=== PATIENT | female | born 1995 | race African-American/Black ===

== ENCOUNTER 2021-09-02 11:07 | Inpatient (IN) | payer BC ==
[2021-09-02] MEDS ORDERED: Labetalol HCl 100 MG/20 ML VIAL SLOW IVP PRN ×2 (11:51)
[2021-09-02] MEDS ORDERED: hydrALAZINE 20 MG/ML VIAL SLOW IVP PRN ×3 (11:51)
[2021-09-02] MEDS ORDERED: Labetalol HCl 100 MG/20 ML VIAL ONE (12:01)
[2021-09-02] MEDS ORDERED: hydrALAZINE 20 MG/ML VIAL ONE (12:01)
[2021-09-02 12:49] LABS: #Monocytes 0.8 10x3/uL (0.0-1.1); #Neutrophils 3.8 10x3/uL (1.5-8.4); %Basophils 0.3 % (0.0-2.0); %Eosinophils 0.6 % (0.0-6.0); %Lymphocytes 31.2 % (18.0-47.0); %Monocytes 11.2 % (0.0-10.0); %Neutrophils 56.1 % (40.0-75.0); Hemoglobin 13.5 g/dL (12.0-15.5); Mean Corpuscular HGB CONC 33.6 g/dL (32.0-36.0); Mean Corpuscular Hemoglobin 27.2 pg (27.0-33.0); Mean Corpuscular Volume 80.9 fl (81.6-98.3); Mean Platelet Volume 10.9 fl (7.4-10.4); Platelet Count 202 10x3/uL (150-450); RBC Distribution Width 15.7 % (11.5-14.5); Red Blood Cell (RBC) Count 4.97 10x6/uL (3.90-5.03); White Blood Cell (WBC) Count 6.8 10x3/uL (3.5-10.5)
[2021-09-02] MEDS ORDERED: Lorazepam 2 MG/ML VIAL SLOW IVP PRN (12:59)
[2021-09-02] MEDS ORDERED: Calcium Gluc 4.6 MEQ/10 ML (100 MG/ML) SLOW IVP PRN (12:59)
[2021-09-02] MEDS ORDERED: Ondansetron PF 4 MG/2 ML Vial IVP PRN (12:59)
[2021-09-02] MEDS ORDERED: Promethazine HCl 25 MG/ML VIAL IM PRN (12:59)
[2021-09-02 13:02] LABS: ALT (SGPT) 18 U/L (8-55); AST (SGOT) 23 U/L (5-34); Albumin 3.5 g/dL (3.5-5.0); Alkaline Phosphatase 180 U/L (40-110); Anion Gap 14 mmol/L (10-20); BUN (Urea Nitrogen) 5 mg/dL (7.0-18.7); Bilirubin, Total 0.4 mg/dL (0.2-1.2); Calc. Creatinine Clearance 0 mL/min (70-130); Calcium 9.5 mg/dL (7.8-10.44); Carbon Dioxide 22 mmol/L (22-29); Chloride 107 mmol/L (98-107); Globulin 2.9 g/dL (2.4-3.5); Potassium 3.9 mmol/L (3.5-5.1); Protein, Total 6.4 g/dL (6.0-8.3); Sodium 139 mmol/L (136-145)
[2021-09-02] MEDS ORDERED: Magnesium Sulfate 20 gm/500 ml 20 GM/500 ML BAG ONE (13:08)
[2021-09-02 13:10] LABS: Glucose 49 mg/dL (70-105)
[2021-09-02] MEDS: Magnesium Sulfate 20 gm/500 ml 20 GM/500 ML BAG IVPB SCH ×2 (13:19→21:53)
[2021-09-02 13:22] VITALS: BMI 37.8
[2021-09-02 14:36] LABS: Creatinine, Urine 52.84 mg/dL (47-110)
[2021-09-02] MEDS: Betamet Acet/Betamet Na Ph 30 MG/5 ML VIAL IM SCH (14:54)
[2021-09-02] MEDS ORDERED: Labetalol HCl 100 MG TAB PO SCH (15:00)
[2021-09-02 16:01] LABS: SARS-CoV-2 NAA Rapid Test Not Detected (NotDetected)
[2021-09-03 00:10] LABS: Magnesium 4.3 mg/dL (1.6-2.6)
[2021-09-03] MEDS: Magnesium Sulfate 20 gm/500 ml 20 GM/500 ML BAG IVPB SCH ×2 (08:03→20:24)
[2021-09-03] MEDS: Labetalol HCl 100 MG TAB PO SCH ×2 (08:59→22:27)
[2021-09-03] MEDS: Betamet Acet/Betamet Na Ph 30 MG/5 ML VIAL IM SCH (15:00)
[2021-09-04] MEDS: Labetalol HCl 100 MG TAB PO SCH ×2 (08:24→20:44)
[2021-09-04] MEDS: Calcium Carbonate 500 MG ChewTAB PO PRN (12:45)
[2021-09-05 08:28] LABS: Hemoglobin 12.8 g/dL (12.0-15.5); Mean Corpuscular HGB CONC 35.3 g/dL (32.0-36.0); Mean Corpuscular Hemoglobin 27.9 pg (27.0-33.0); Mean Corpuscular Volume 79.3 fl (81.6-98.3); Platelet Count 193 10x3/uL (150-450); RBC Distribution Width 16.4 % (11.5-14.5); Red Blood Cell (RBC) Count 4.58 10x6/uL (3.90-5.03); White Blood Cell (WBC) Count 11.1 10x3/uL (3.5-10.5)
[2021-09-05 08:53] LABS: ALT (SGPT) 16 U/L (8-55); AST (SGOT) 18 U/L (5-34); Albumin 3.3 g/dL (3.5-5.0); Alkaline Phosphatase 146 U/L (40-110); Anion Gap 15 mmol/L (10-20); BUN (Urea Nitrogen) 10 mg/dL (7.0-18.7); Bilirubin, Total 0.4 mg/dL (0.2-1.2); Calc. Creatinine Clearance 187 mL/min (70-130); Calcium 9.1 mg/dL (7.8-10.44); Carbon Dioxide 21 mmol/L (22-29); Chloride 107 mmol/L (98-107); Globulin 2.7 g/dL (2.4-3.5); Glucose 71 mg/dL (70-105); Potassium 4.3 mmol/L (3.5-5.1); Sodium 139 mmol/L (136-145)
[2021-09-05] MEDS: Labetalol HCl 100 MG TAB PO SCH ×2 (10:02→20:31)
[2021-09-05] MEDS: Calcium Carbonate 500 MG ChewTAB PO PRN ×2 (10:03→20:32)
[2021-09-06] MEDS: Labetalol HCl 100 MG TAB PO SCH ×2 (09:27→20:28)
[2021-09-06] MEDS ORDERED: hydrALAZINE 20 MG/ML VIAL SLOW IVP PRN (14:02)
[2021-09-06] MEDS: Calcium Carbonate 500 MG ChewTAB PO PRN (20:28)
[2021-09-07] MEDS: hydrALAZINE 20 MG/ML VIAL SLOW IVP PRN ×2 (07:59→17:22)
[2021-09-07] MEDS: Labetalol HCl 100 MG TAB PO SCH (08:02)
[2021-09-07] MEDS ORDERED: Acetaminophen 500 MG TAB PO PRN (12:50)
[2021-09-07 17:58] LABS: Bilirubin Neg (Negative); Blood, Urine 150 (Negative); Clarity Clear (Clear); Glucose, Urine (Dipstick) Normal (Negative); Ketone, Urine Negative (Negative); Leukocyte 100 (Negative); Nitrite Positive (Negative); Protein, Urine (Dipstick) 30 mg/dl (Neg-Trace); Specific Gravity, Urine 1.015 (1.002-1.036); Urobilinogen Normal mg/dL (Less than 2)
[2021-09-07 18:33] LABS: Bacteria/HPF 3+ HPF (None Seen); Squamous Epithelial 0-3 HPF (0-3)
[2021-09-07 19:01] LABS: Hemoglobin 12.7 g/dL (12.0-15.5); Mean Corpuscular HGB CONC 34.3 g/dL (32.0-36.0); Mean Corpuscular Hemoglobin 27.9 pg (27.0-33.0); Mean Corpuscular Volume 81.1 fl (81.6-98.3); Mean Platelet Volume 11.1 fl (7.4-10.4); Platelet Count 178 10x3/uL (150-450); RBC Distribution Width 15.9 % (11.5-14.5); Red Blood Cell (RBC) Count 4.56 10x6/uL (3.90-5.03); White Blood Cell (WBC) Count 8.3 10x3/uL (3.5-10.5)
[2021-09-07] MEDS: Nitrofurantoin Monohyd/M-Cryst 100 MG CAP PO SCH (21:01)
[2021-09-07] MEDS: Labetalol HCl 200 MG TAB PO SCH (21:01)
[2021-09-07] MEDS: Calcium Carbonate 500 MG ChewTAB PO PRN (22:19)
[2021-09-08] MEDS: hydrALAZINE 20 MG/ML VIAL SLOW IVP PRN (04:57)
[2021-09-08 05:20] LABS: ALT (SGPT) 16 U/L (8-55); AST (SGOT) 18 U/L (5-34); Albumin 2.8 g/dL (3.5-5.0); Alkaline Phosphatase 149 U/L (40-110); Anion Gap 14 mmol/L (10-20); BUN (Urea Nitrogen) 8 mg/dL (7.0-18.7); Bilirubin, Total 0.4 mg/dL (0.2-1.2); Calc. Creatinine Clearance 196 mL/min (70-130); Calcium 8.6 mg/dL (7.8-10.44); Carbon Dioxide 21 mmol/L (22-29); Chloride 108 mmol/L (98-107); Globulin 2.5 g/dL (2.4-3.5); Glucose 79 mg/dL (70-105); Potassium 4.1 mmol/L (3.5-5.1); Protein, Total 5.3 g/dL (6.0-8.3); Sodium 139 mmol/L (136-145)
[2021-09-08] MEDS ORDERED: Bicitra 30 ML UDCUP PO PRN (05:55)
[2021-09-08] MEDS ORDERED: Ondansetron PF 4 MG/2 ML Vial IVP PRN ×3 (05:55→22:34)
[2021-09-08] MEDS ORDERED: hydrALAZINE 20 MG/ML VIAL SLOW IVP PRN (05:55)
[2021-09-08] MEDS ORDERED: Butorphanol Tartrate 1 MG/ML VIAL SLOW IVP PRN (05:55)
[2021-09-08] MEDS ORDERED: Promethazine HCl 25 MG/ML VIAL IM PRN ×3 (05:55→22:34)
[2021-09-08] MEDS ORDERED: Famotidine/PF 20 mg/2ml Vial SLOW IVP PRN (05:55)
[2021-09-08] MEDS ORDERED: ceFAZolin 2 GM/Dextrose 50 ML 2 GM in Premix Bag 1 BAG IVPB SCH (06:00)
[2021-09-08] MEDS ORDERED: Lorazepam 2 MG/ML VIAL SLOW IVP PRN (06:04)
[2021-09-08] MEDS ORDERED: Calcium Gluc 4.6 MEQ/10 ML (100 MG/ML) SLOW IVP PRN (06:04)
[2021-09-08 08:14] LABS: Mean Corpuscular Hemoglobin 27.6 pg (27.0-33.0); Mean Corpuscular Volume 78.8 fl (81.6-98.3); Mean Platelet Volume 11.6 fl (7.4-10.4); Platelet Count 175 10x3/uL (150-450); RBC Distribution Width 16.1 % (11.5-14.5); Red Blood Cell (RBC) Count 4.71 10x6/uL (3.90-5.03); White Blood Cell (WBC) Count 8.6 10x3/uL (3.5-10.5)
[2021-09-08 08:25] LABS: ALT (SGPT) 20 U/L (8-55); AST (SGOT) 25 U/L (5-34); Albumin 3.1 g/dL (3.5-5.0); Alkaline Phosphatase 163 U/L (40-110); Anion Gap 15 mmol/L (10-20); BUN (Urea Nitrogen) 7 mg/dL (7.0-18.7); Bilirubin, Total 0.5 mg/dL (0.2-1.2); Calc. Creatinine Clearance 199 mL/min (70-130); Calcium 8.9 mg/dL (7.8-10.44); Carbon Dioxide 20 mmol/L (22-29); Chloride 107 mmol/L (98-107); Globulin 2.7 g/dL (2.4-3.5); Glucose 70 mg/dL (70-105); Potassium 4.2 mmol/L (3.5-5.1); Protein, Total 5.8 g/dL (6.0-8.3); Sodium 138 mmol/L (136-145)
[2021-09-08] MEDS: Labetalol HCl 200 MG TAB PO SCH ×2 (09:00→21:42)
[2021-09-08] MEDS: Nitrofurantoin Monohyd/M-Cryst 100 MG CAP PO SCH ×2 (09:00→21:42)
[2021-09-08 09:23] LABS: Hep B Surf Ag Non-Reactive S/CO (NonReactive)
[2021-09-08 09:24] LABS: Syphilis Antibody Nonreactive (Nonreactive); Syphilis Antibody Index 0.03 S/CO (<1.00 Non-Reactive)
[2021-09-08 09:56] LABS: HBSAg Index 0.17 S/CO (0-0.99)
[2021-09-08] MEDS ORDERED: ceFAZolin 2 GM/Dextrose 50 ML IVPB ONE (15:12)
[2021-09-08] MEDS ORDERED: PHENYLEPHRINE-NS 100 MCG/ML 10 ML SYRINGE ONE (15:16)
[2021-09-08] MEDS ORDERED: Oxytocin 10 UNITS/ML VIAL ONE (15:16)
[2021-09-08] MEDS ORDERED: Morphine PF 10 MG/10 ML VIAL ONE (15:16)
[2021-09-08] MEDS ORDERED: Fentanyl 100 MCG/2 ML VIAL ONE (16:15)
[2021-09-08] MEDS ORDERED: Fentanyl 100 MCG/2 ML VIAL SLOW IVP PRN (16:37)
[2021-09-08] MEDS ORDERED: Ondansetron HCl/PF 4 MG/2 ML Vial IVP PRN (16:37)
[2021-09-08] MEDS ORDERED: diphenhydrAMINE 50 MG/ML VIAL IVP PRN (16:37)
[2021-09-08] MEDS ORDERED: Promethazine HCl 25 MG SUPP PR PRN (16:37)
[2021-09-08] MEDS ORDERED: Naloxone HCl 0.4 mg/ml Vial IV PRN (16:37)
[2021-09-08] MEDS ORDERED: Moisturizing Cream (Eucerin) 113 GM JAR TOP PRN (16:37)
[2021-09-08] MEDS ORDERED: Naloxone HCl 0.4 mg/ml Vial IVP PRN ×2 (16:37)
[2021-09-08] MEDS ORDERED: Meperidine HCl/PF 25 MG/ML VIAL SLOW IVP PRN (16:37)
[2021-09-08 16:43] LABS: RapidComm Collect By NURSE
[2021-09-08 16:44] LABS: RapidComm Collect By NURSE; pH (Cord, venous) 7.336 (7.250-7.350)
[2021-09-08] MEDS ORDERED: Communication Order-Pharmacy FS SCH (16:45)
[2021-09-08] MEDS ORDERED: Ketorolac Tromethamine 30 MG/ML VIAL IVP SCH (16:45)
[2021-09-08] MEDS ORDERED: Boostrix 0.5 ML (Tdap) VIAL IM ONE (22:34)
[2021-09-08] MEDS ORDERED: Misoprostol 200 MCG TAB PR PRN (22:34)
[2021-09-08] MEDS ORDERED: Simethicone Chewable 80 MG TAB PO PRN (22:34)
[2021-09-08] MEDS ORDERED: NS w/ Oxytocin 30 units 500 ML IV SCH (23:00)
[2021-09-08] MEDS ORDERED: Docusate 100 MG CAP PO SCH (23:00)
[2021-09-08] MEDS ORDERED: Ferrous Sulfate 325 MG TAB PO SCH (23:00)
[2021-09-09 04:37] LABS: Hemoglobin 13.1 g/dL (12.0-15.5); Mean Corpuscular HGB CONC 35.2 g/dL (32.0-36.0); Mean Corpuscular Hemoglobin 27.7 pg (27.0-33.0); Mean Corpuscular Volume 78.6 fl (81.6-98.3); Mean Platelet Volume 11.6 fl (7.4-10.4); Platelet Count 158 10x3/uL (150-450); RBC Distribution Width 15.9 % (11.5-14.5); Red Blood Cell (RBC) Count 4.73 10x6/uL (3.90-5.03); White Blood Cell (WBC) Count 9.3 10x3/uL (3.5-10.5)
[2021-09-09] MEDS ORDERED: HYDROcodone/Acetaminophen 5/325 mg Tablet PO PRN (04:45)
[2021-09-09] MEDS: Magnesium Sulfate 20 gm/500 ml 20 GM/500 ML BAG IVPB SCH ×2 (04:48→15:20)
[2021-09-09] MEDS: Ketorolac Tromethamine 30 MG/ML VIAL IVP PRN ×2 (08:02→15:47)
[2021-09-09] MEDS: Docusate 100 MG CAP PO SCH ×2 (09:45→21:33)
[2021-09-09] MEDS: Ferrous Sulfate 325 MG TAB PO SCH (09:46)
[2021-09-09] MEDS: Prenatal Vitamin 1 TAB PO SCH (10:06)
[2021-09-09] MEDS: Labetalol HCl 200 MG TAB PO SCH ×2 (10:07→21:34)
[2021-09-09] MEDS: Nitrofurantoin Monohyd/M-Cryst 100 MG CAP PO SCH ×2 (10:50→21:33)
[2021-09-09] MEDS: Lactated Ringer's 1,000 ML IV SCH (18:07)
[2021-09-09] MEDS: Ibuprofen 800 MG TAB PO SCH (21:34)
[2021-09-09] MEDS ORDERED: hydrALAZINE 20 MG/ML VIAL SLOW IVP PRN (21:57)
[2021-09-10] MEDS: Lactated Ringer's 1,000 ML IV SCH ×4 (01:11→22:52)
[2021-09-10] MEDS: Ferrous Sulfate 325 MG TAB PO SCH ×3 (01:12→21:41)
[2021-09-10] MEDS: Ibuprofen 800 MG TAB PO SCH ×3 (06:11→21:38)
[2021-09-10] MEDS: Docusate 100 MG CAP PO SCH ×2 (08:44→21:38)
[2021-09-10] MEDS: Prenatal Vitamin 1 TAB PO SCH (08:44)
[2021-09-10] MEDS: Nitrofurantoin Monohyd/M-Cryst 100 MG CAP PO SCH ×2 (08:44→21:38)
[2021-09-10] MEDS: Labetalol HCl 200 MG TAB PO SCH ×2 (08:45→21:40)
[2021-09-10] MEDS: HYDROcodone/Acetaminophen 5/325 mg Tablet PO PRN ×2 (10:34→17:38)
[2021-09-11] MEDS: Lactated Ringer's 1,000 ML IV SCH ×2 (00:26→06:24)
[2021-09-11] MEDS: Ibuprofen 800 MG TAB PO SCH (06:11)
[2021-09-11] MEDS: Labetalol HCl 200 MG TAB PO SCH (08:45)
[2021-09-11] MEDS: Nitrofurantoin Monohyd/M-Cryst 100 MG CAP PO SCH (08:50)
[2021-09-11] MEDS: Docusate 100 MG CAP PO SCH (08:51)
[2021-09-11] MEDS: Prenatal Vitamin 1 TAB PO SCH (08:51)
[2021-09-11 08:52] VITALS: BP 132/75
[2021-09-11 10:18] VITALS: TEMP 98.1
== END 2021-09-11 11:00 | disposition home or self-care (01) | DRG 787 ==
LOC: CSHLD/OP 11:07 → CSHLD 14:12 → CSHANTE 09-04 17:30 → CSHLD 09-08 06:29 → CSHPP 09-09 19:55
PROVIDERS: ADMIT Obstetrics & Gynecology; ATTEND Obstetrics & Gynecology
PROC: 10D00Z1 Extraction of Products of Conception, Low, Open Approach (ICD-10-PCS; principal; 2021-09-08)
DX: O14.14 Severe pre-eclampsia complicating childbirth (principal); N39.0 Urinary tract infection, site not specified; Z20.822 Contact with and (suspected) exposure to COVID-19; O32.0XX0 Maternal care for unstable lie, not applicable or unspecified; Z82.49 Family history of ischemic heart disease and other diseases of the circulatory system; Z3A.30 30 weeks gestation of pregnancy; O23.43 Unspecified infection of urinary tract in pregnancy, third trimester
CPT/HCPCS: 36415; 51702; 59025; 76815; 80053; 81003; 81015; 82570; 82805; 83735; 84156; 85025; 85027; 86780; 86850; 86900; 86901; 87077; 87081; 87086; 87186; 87340; 88307; 90715; 99285; J0360; J0702; J1885; J2274; J2590; J3010; J3475; U0002; U0003; U0005

== ENCOUNTER 2021-09-12 12:10 | Inpatient (IN) | payer BC, MEDICAID ==
[~2021-09-12 12:10] MED LIST: Iopamidol 370 76% 100 ML VIAL ONE
[2021-09-12 12:49] LABS: #Eosinphils 0.2 10x3/uL (0.0-0.5); #Monocytes 0.5 10x3/uL (0.0-1.1); #Neutrophils 5.4 10x3/uL (1.5-8.4); %Basophils 0.1 % (0.0-2.0); %Eosinophils 2.4 % (0.0-6.0); %Lymphocytes 9.5 % (18.0-47.0); %Monocytes 6.7 % (0.0-10.0); %Neutrophils 80.6 % (40.0-75.0); Hemoglobin 12.8 g/dL (12.0-15.5); Mean Corpuscular HGB CONC 35.7 g/dL (32.0-36.0); Mean Corpuscular Hemoglobin 28.1 pg (27.0-33.0); Mean Corpuscular Volume 78.9 fl (81.6-98.3); Mean Platelet Volume 10.9 fl (7.4-10.4); Platelet Count 182 10x3/uL (150-450); RBC Distribution Width 15.9 % (11.5-14.5); Red Blood Cell (RBC) Count 4.55 10x6/uL (3.90-5.03); White Blood Cell (WBC) Count 6.8 10x3/uL (3.5-10.5)
[2021-09-12 13:02] LABS: INR-International Normal Ratio 0.9; PTT 24.6 sec (22.0-33.0); Prothrombin Time 10.1 sec (9.5-12.1)
[2021-09-12 13:05] LABS: ALT (SGPT) 41 U/L (8-55); AST (SGOT) 25 U/L (5-34); Albumin 3.4 g/dL (3.5-5.0); Alkaline Phosphatase 107 U/L (40-110); Anion Gap 17 mmol/L (10-20); BUN (Urea Nitrogen) 10 mg/dL (7.0-18.7); Bilirubin, Total 0.5 mg/dL (0.2-1.2); Calc. Creatinine Clearance 0 mL/min (70-130); Calcium 8.9 mg/dL (7.8-10.44); Carbon Dioxide 24 mmol/L (22-29); Chloride 101 mmol/L (98-107); Globulin 2.5 g/dL (2.4-3.5); Glucose 87 mg/dL (70-105); Potassium 4.5 mmol/L (3.5-5.1); Protein, Total 5.9 g/dL (6.0-8.3); Sodium 137 mmol/L (136-145)
[2021-09-12] MEDS ORDERED: Acetaminophen 500 MG TAB ONE (13:08)
[2021-09-12] MEDS ORDERED: hydrALAZINE 20 MG/ML VIAL ONE ×2 (13:21→17:01)
[2021-09-12] MEDS ORDERED: cefTRIAXone\\ROCEPHIN 2 GM VIAL ONE (13:21)
[2021-09-12 14:27] LABS: Bilirubin Neg (Negative); Blood, Urine Negative (Negative); Clarity Clear (Clear); Glucose, Urine (Dipstick) Normal (Negative); Ketone, Urine Negative (Negative); Leukocyte Negative (Negative); Nitrite Negative (Negative); Protein, Urine (Dipstick) 15 mg/dl (Neg-Trace); Specific Gravity, Urine 1.005 (1.002-1.036); Urobilinogen Normal mg/dL (Less than 2)
[2021-09-12 16:25] LABS: SARS-CoV-2 NAA Rapid Test Not Detected (NotDetected)
[2021-09-12] MEDS ORDERED: Labetalol HCl 100 MG/20 ML VIAL ONE ×2 (17:01)
[2021-09-12] MEDS ORDERED: Calcium Carbonate 500 MG ChewTAB PO PRN (17:48)
[2021-09-12] MEDS ORDERED: Calcium Gluc 4.6 MEQ/10 ML (100 MG/ML) SLOW IVP PRN (17:48)
[2021-09-12] MEDS ORDERED: Labetalol HCl 100 MG/20 ML VIAL SLOW IVP PRN ×2 (17:48)
[2021-09-12] MEDS ORDERED: Ondansetron ODT 4 MG TAB PO PRN (17:48)
[2021-09-12] MEDS ORDERED: Ondansetron PF 4 MG/2 ML Vial IVP PRN (17:48)
[2021-09-12] MEDS ORDERED: Acetaminophen 325 MG TAB PO PRN (17:48)
[2021-09-12] MEDS ORDERED: Zolpidem Tartrate 5 MG TAB PO PRN (17:48)
[2021-09-12] MEDS ORDERED: Lorazepam 2 MG/ML VIAL SLOW IVP PRN (17:48)
[2021-09-12] MEDS ORDERED: hydrALAZINE 20 MG/ML VIAL SLOW IVP PRN ×2 (17:48)
[2021-09-12] MEDS ORDERED: Magnesium 2 GM/50 ML BAG (IN WATER) ONE (18:04)
[2021-09-12] MEDS: Magnesium Sulfate 20 gm/500 ml 20 GM/500 ML BAG IVPB SCH (19:40)
[2021-09-12] MEDS: Labetalol HCl 200 MG TAB PO SCH (20:48)
[2021-09-12] MEDS: NIFEdipine XL 30 MG TAB PO SCH (20:49)
[2021-09-12] MEDS: HYDROcodone/Acetaminophen 5/325 mg Tablet PO PRN (21:12)
[2021-09-12] MEDS: Cephalexin 500 MG CAP PO SCH (23:58)
[2021-09-13] MEDS: Acetaminophen 500 MG TAB PO PRN ×3 (04:20→17:30)
[2021-09-13] MEDS: Cephalexin 500 MG CAP PO SCH ×2 (06:06→12:06)
[2021-09-13] MEDS: Magnesium Sulfate 20 gm/500 ml 20 GM/500 ML BAG IVPB SCH (06:07)
[2021-09-13] MEDS: Labetalol HCl 200 MG TAB PO SCH ×3 (08:52→22:00)
[2021-09-13] MEDS ORDERED: Enoxaparin Sodium 30 MG/0.3 ML SYRINGE SC SCH (09:00)
[2021-09-13] MEDS ORDERED: NIFEdipine XL 30 MG TAB PO SCH (09:00)
[2021-09-13] MEDS ORDERED: Ampicillin/Sulbactam 3 GM in Sodium Chloride 0.9% 100 ML IVPB SCH (13:00)
[2021-09-13] MEDS: Ampicillin/Sulbactam 3 GM in Sodium Chloride 0.9% 100 ML IVPB SCH ×2 (13:39→20:19)
[2021-09-13] MEDS: Clindamycin/D5W 900 MG in Premix Bag 1 BAG IVPB SCH ×2 (15:34→22:00)
[2021-09-13 15:55] VITALS: BMI 36.6
[2021-09-13] MEDS: Ibuprofen 600 MG TAB PO PRN (16:11)
[2021-09-13] MEDS: NIFEdipine XL 30 MG TAB PO SCH (22:00)
[2021-09-14] MEDS: Ampicillin/Sulbactam 3 GM in Sodium Chloride 0.9% 100 ML IVPB SCH ×4 (03:00→20:55)
[2021-09-14] MEDS: Acetaminophen 500 MG TAB PO PRN (03:22)
[2021-09-14] MEDS: Ibuprofen 600 MG TAB PO PRN ×2 (05:20→16:24)
[2021-09-14] MEDS: Clindamycin/D5W 900 MG in Premix Bag 1 BAG IVPB SCH ×3 (05:21→21:01)
[2021-09-14] MEDS: HYDROcodone/Acetaminophen 5/325 mg Tablet PO PRN ×3 (07:49→21:06)
[2021-09-14] MEDS: Labetalol HCl 200 MG TAB PO SCH ×3 (07:50→21:00)
[2021-09-14 09:22] LABS: #Eosinphils 0.2 10x3/uL (0.0-0.5); #Monocytes 0.2 10x3/uL (0.0-1.1); #Neutrophils 5.4 10x3/uL (1.5-8.4); %Basophils 0.3 % (0.0-2.0); %Eosinophils 2.6 % (0.0-6.0); %Monocytes 3.1 % (0.0-10.0); %Neutrophils 83.3 % (40.0-75.0); Hemoglobin 12.6 g/dL (12.0-15.5); Mean Corpuscular HGB CONC 33.7 g/dL (32.0-36.0); Mean Corpuscular Hemoglobin 27.4 pg (27.0-33.0); Mean Corpuscular Volume 81.3 fl (81.6-98.3); Mean Platelet Volume 10.9 fl (7.4-10.4); Platelet Count 218 10x3/uL (150-450); RBC Distribution Width 15.9 % (11.5-14.5); White Blood Cell (WBC) Count 6.5 10x3/uL (3.5-10.5)
[2021-09-14] MEDS: Enoxaparin Sodium 40 MG/0.4 ML SYRINGE SC SCH (09:30)
[2021-09-14] MEDS ORDERED: Sodium Chloride 0.9% 100 ML ONE (20:42)
[2021-09-14] MEDS: NIFEdipine XL 30 MG TAB PO SCH (21:00)
[2021-09-15] MEDS: Ampicillin/Sulbactam 3 GM in Sodium Chloride 0.9% 100 ML IVPB SCH ×3 (02:58→14:07)
[2021-09-15] MEDS: Acetaminophen 500 MG TAB PO PRN (03:08)
[2021-09-15] MEDS: Clindamycin/D5W 900 MG in Premix Bag 1 BAG IVPB SCH ×2 (05:02→14:06)
[2021-09-15] MEDS: Enoxaparin Sodium 40 MG/0.4 ML SYRINGE SC SCH (08:47)
[2021-09-15] MEDS: Labetalol HCl 200 MG TAB PO SCH ×3 (08:48→20:45)
[2021-09-15] MEDS: HYDROcodone/Acetaminophen 5/325 mg Tablet PO PRN ×2 (08:58→16:48)
[2021-09-15] MEDS: NIFEdipine XL 30 MG TAB PO SCH (20:44)
[2021-09-15] MEDS: Amoxicillin/Potassium Clav 875 MG TAB PO SCH (20:44)
[2021-09-15] MEDS: Clindamycin 150 MG CAP PO SCH (21:05)
[2021-09-16] MEDS: Acetaminophen 500 MG TAB PO PRN (03:34)
[2021-09-16] MEDS: Clindamycin 150 MG CAP PO SCH (05:11)
[2021-09-16 07:50] VITALS: BP 135/84; TEMP 99.1
[2021-09-16] MEDS: Enoxaparin Sodium 40 MG/0.4 ML SYRINGE SC SCH (08:24)
[2021-09-16] MEDS: Amoxicillin/Potassium Clav 875 MG TAB PO SCH (08:24)
[2021-09-16] MEDS: Labetalol HCl 200 MG TAB PO SCH (08:24)
[2021-09-16] MEDS ORDERED: NIFEdipine XL 30 MG TAB PO SCH (09:00)
== END 2021-09-16 12:40 | disposition home or self-care (01) | DRG 776 ==
LOC: CSHERS 12:10 → CSHLD 19:56 → CSHPP 09-13 19:20
PROVIDERS: ADMIT Obstetrics & Gynecology; ATTEND Obstetrics & Gynecology
DX: O14.15 Severe pre-eclampsia, complicating the puerperium (principal); Z20.822 Contact with and (suspected) exposure to COVID-19; Z79.899 Other long term (current) drug therapy; O91.22 Nonpurulent mastitis associated with the puerperium
CPT/HCPCS: 36415; 71045; 71275; 74177; 80053; 81003; 83605; 84145; 85025; 85610; 85730; 87040; 87086; 96365; 96374; 96375; 96376; 99285; J0295; J0360; J0696; J1650; J3475; J3490; Q9967

== ENCOUNTER 2023-03-24 08:11 | Emergency (ER) | payer BC, OTHER ==
[2023-03-24] MEDS ORDERED: Ibuprofen 200 MG TAB ONE (08:45)
[2023-03-24] MEDS ORDERED: HYDROcodone/Acetaminophen 5/325 mg Tablet ONE (08:45)
== END 2023-03-24 08:37 | disposition home or self-care (01) ==
LOC: CSHERS 08:11
DX: H60.503 Unspecified acute noninfective otitis externa, bilateral (principal); I10 Essential (primary) hypertension
CPT/HCPCS: 99282

== ENCOUNTER 2024-01-04 15:36 | Emergency (ER) | payer BC | END 2024-01-04 16:16 | disposition home or self-care (01) | LOC: CSHERS 15:36 | DX: M54.2 Cervicalgia (principal); I10 Essential (primary) hypertension | CPT/HCPCS: 99283 ==